=== PATIENT | male | born 1985 | race Caucasian/White ===

== ENCOUNTER 2021-12-15 15:50 | Emergency (ER) | payer OTHER, SELFPAY ==
[2021-12-15 16:01] VITALS: BP 129/85; PULSE 83; RESP 16; TEMP 36.4; O2SAT 100
--- NOTE | 2021-12-15 16:07 | ED.URI ---
HPI - URI/Sore Throat General Chief Complaint: Upper Respiratory Infection Stated Complaint: SORE THROAT/EAR PRESSURE/WHITE SPOTS IN THROAT Time Seen by Provider: 12/15/21 16:10 Source: patient, RN notes reviewed and old records reviewed Mode of arrival: ambulatory Limitations: no limitations History of Present Illness HPI Narrative: 35 year old male presents to express care with complaints of ear pressure and discomfort today, sore throat yesterday with symptoms increasing today. Patient states that he looked at his throat and saw all the white stuff on his tonsils and he though he had better get checked out. Patient denies any known fevers chills or sweats. patient states that his pain is 6/10 especially worse when swallowing, using cough drops to soothe throat. Patient denies any difficulty breathing or any acute cough. He has not had COVID vaccinations did have COVID September of 2021, has not had flu shot. MD elicited complaint: sore throat and other (ear pain and pressure) Onset (ago): day(s) (1) Consistency: progressively worsening Severity: moderate Pain scale (0-10): 6 Able to tolerate fluids by mouth: Yes Exacerbating factors: swallowing Relieving factors: nothing Associated symptoms: sore throat and ear pain Treatments prior to arrival: other (cough drops) Related Data Allergies Allergy/AdvReac Type Severity Reaction Status Date / Time cefaclor Allergy Unknown Verified 12/01/16 14:33 Review of Systems Review of Systems: CONSTITUTIONAL: Denies fever, chills, or sweats. EYES: Denies visual changes, redness, or discharge. ENT: Denies rhinorrhea, congestion,positive for sore throat, bilateral otalgia. CARDIOVASCULAR: Denies chest pain, palpitations, or edema. RESPIRATORY: Denies cough or dyspnea. GASTROINTESTINAL: Denies abdominal pain, nausea, vomiting, or diarrhea. GENITOURINARY: Denies dysuria or hematuria. SKIN: Denies rash or itching. MUSCULOSKELETAL: Denies back pain, joint pain, or myalgia. NEUROLOGIC: Denies headache, numbness, or weakness. PSYCHIATRIC: Denies anxiety or depression. All systems reviewed & are unremarkable except as noted in HPI and below PMFSH Past Medical History Medical History (Updated 12/15/21 @ 16:46 by Marlen Henson NP) COVID-27 September 2021 Fracture of left wrist with pinning Surgical History Surgical History (Updated 12/15/21 @ 16:37 by Marlen Henson NP) H/O lymph node excision left neck as child History of back surgery 2014 lumbar Social History Social History (Updated 12/15/21 @ 16:35 by Marlen Henson NP) Smoking status: Current every day smoker Tobacco type: cigarettes Alcohol intake: current Alcohol use details: social Substance use: current Substance use type: marijuana Last use: social Living arrangements: with family Gender identity (if verbalized by the patient): Male Comments At time of signature, agree with nursing past medical, surgical, social and family history. There is no relevant family history pertinent to the presenting complaint Exam Narrative: GENERAL: Well-appearing, well-nourished, and in no acute distress. HEAD: Normocephalic, atraumatic. EYES: PERRLA and EOMI. ENT: Nares clear, no rhinorrhea or epistaxis. Mucous membranes moist.TM's normal with dull light reflex, throat red swollen with white lesions on huge red swollen tonsils. NECK: Supple. lymphadenopathy CHEST: Clear to auscultation. No respiratory distress. SAO2 100% on room air, no cough or congestion verbalized. HEART: Regular rate and rhythm. No murmur heard. Normal peripheral pulses. ABDOMEN: Soft, nontender, nondistended, normal active bowel sounds. EXTREMITIES: Normal range of motion. No edema. SKIN: Warm, dry, no rash. NEURO: No focal deficits. Alert and oriented x3. Course Course Level of Care: Express Care Visit Vital Signs Vital signs: Vital Signs Temperature 36.4 C 12/15/21 16:01 Pulse Rate 83 12/15/21 16:01 Respiratory Rate
== END 2021-12-15 16:36 | disposition home or self-care (01) ==
PROVIDERS: Emergency Provider Registered Nurse
DX: J03.90 Acute tonsillitis, unspecified (principal); F17.210 Nicotine dependence, cigarettes, uncomplicated; Z86.16 Personal history of COVID-19; Z28.310 Unvaccinated for COVID-19
CPT/HCPCS: 87081; 87880; 99203; G0463